=== PATIENT | male | born 1960 | race Caucasian/White ===

== ENCOUNTER 2018-05-02 10:11 | Emergency (ER) | payer BC, OTHER ==
[~2018-05-02] VITALS: Ht 167.6 cm; Wt 109.3 kg
[~2018-05-02 10:11] MED LIST: LISI-420 PO; LORA-476 PO; ORE25 PO; SIMV20TA1 PO
[2018-05-02 10:17] VITALS: BP 150/111
[2018-05-02] MEDS ORDERED: KETOROLAC 60 MG/2 ML VIAL IM ONE (10:35)
[2018-05-02 10:50] VITALS: BP 138/89
== END 2018-05-02 10:48 | disposition home or self-care (01) ==
LOC: MED 10:11
DX: S80.02XA Contusion of left knee, initial encounter (principal); I10 Essential (primary) hypertension; F41.9 Anxiety disorder, unspecified; Z79.899 Other long term (current) drug therapy; Z88.8 Allergy status to other drugs, medicaments and biological substances; W50.0XXA Accidental hit or strike by another person, initial encounter; Y93.89 Activity, other specified; Y92.89 Other specified places as the place of occurrence of the external cause; Y99.8 Other external cause status
CPT/HCPCS: 96372; 99283; J1885